=== PATIENT | female | born 1995 | race American Indian/Alaskan Native ===

== ENCOUNTER 2021-10-10 16:11 | Emergency (ER) | payer OTHER ==
[2021-10-10 19:37] LABS: Bilirubin,Urine NEG (Negative); Blood,Urine NEG (Negative); Color,Urine Yellow (Yellow); Mucus,Urine 3+ /HPF; Protein,Urine <15 mg/dL mg/dL (Negative)
[2021-10-10 19:38] LABS: HCG Qualitative,Urine Negative (Negative)
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
[2021-10-10 21:42] VITALS: BP 124/68
== END 2021-10-10 21:42 | disposition home or self-care (01) ==
LOC: ED 16:11
DX: M79.18 Myalgia, other site (principal); Z79.899 Other long term (current) drug therapy; V89.2XXA Person injured in unspecified motor-vehicle accident, traffic, initial encounter; Y93.89 Activity, other specified; Y92.488 Other paved roadways as the place of occurrence of the external cause; Y99.8 Other external cause status
CPT/HCPCS: 71046; 81001; 81025; 99283